=== PATIENT | male | born 1980 | race Caucasian/White ===

== ENCOUNTER 2020-09-11 01:25 | Emergency (ER) | payer SELFPAY ==
[~2020-09-11] VITALS: Ht 180.3 cm; Wt 102.2 kg
--- NOTE | 2020-09-11 02:04 | NUR ---
PT. TO ROOM FROM LOBBY AT THIS TIME.
[2020-09-11] MEDS ORDERED: KETOROLAC 30 MG/1 ML ONE (03:44)
[2020-09-11] MEDS ORDERED: ACETAMINOPHEN 500 MG TABLET ONE (03:44)
[2020-09-11] MEDS ORDERED: ACETAMINOPHEN 500 MG TABLET PO ONE (04:00)
[2020-09-11 04:11] VITALS: BP 124/82
== END 2020-09-11 04:12 | disposition home or self-care (01) ==
LOC: ED 02:52
DX: M77.8 Other enthesopathies, not elsewhere classified (principal); M79.671 Pain in right foot
CPT/HCPCS: 99283

== ENCOUNTER 2020-09-18 00:08 | Emergency (ER) | payer SELFPAY ==
[~2020-09-18] VITALS: Ht 180.3 cm; Wt 102.5 kg
[2020-09-18 00:15] VITALS: BP 163/100
--- NOTE | 2020-09-18 02:44 | NUR ---
PT PRESENTS TO ER FOR RIGHT ANKLE AND FOOT PAIN, PT STATES HE EXPERIENCES PAIN REGARDLESS IF ITS ELEVATED OR IF HE HAS ICE ON OR IF HE TAKES PAIN MEDS, PT STATES "IT FEELS LIKE THERE IS A KNIFE GOING ACROSS IT", PT STATES THIS PAIN HAS BEEN GOING ON FOR THE LAST TWO DAYS
[2020-09-18] MEDS ORDERED: OXYcodone/APAP 10/325MG TABLET ONE (03:49)
[2020-09-18] MEDS ORDERED: OXYcodone/APAP 10/325MG TABLET PO ONE (04:00)
== END 2020-09-18 03:59 | disposition home or self-care (01) ==
LOC: ED 01:00
DX: G89.29 Other chronic pain (principal); M79.671 Pain in right foot; F17.200 Nicotine dependence, unspecified, uncomplicated
CPT/HCPCS: 99283

== ENCOUNTER 2020-11-09 01:34 | Emergency (ER) | payer SELFPAY ==
[~2020-11-09] VITALS: Ht 180.3 cm; Wt 98.0 kg
[2020-11-09 01:37] VITALS: BP 122/80
[2020-11-09 01:56] LABS: BASOPHILS % (AUTO) 1 % (0-1); EOSINOPHILS % (AUTO) 1 % (1-7); LYMPHOCYTES % (AUTO) 26 % (22-44); MEAN CORPUSCULAR HEMOGLOBIN 34.1 pg (27.5-34.5); MEAN CORPUSCULAR HGB CONC 34.9 g/dL (33.2-36.2); MEAN PLATELET VOLUME 9.4 fL (7.4-10.4); MONOCYTES % (AUTO) 8 % (2-9); NEUTROPHILS % (AUTO) 65 % (42-75); PLATELET COUNT 156 x10^3/uL (130-400); RED BLOOD COUNT 5.26 x10^6/uL (4.38-5.82)
[2020-11-09 02:09] LABS: ALANINE AMINOTRANSFERASE 71 U/L (12-78); ANION GAP 4 mmol/L (5-15); CALCIUM 8.4 mg/dL (8.5-10.1); CHLORIDE 106 mmol/L (98-107); CREATININE 1.32 mg/dL (0.7-1.3)
[2020-11-09 02:11] LABS: ALKALINE PHOSPHATASE 77 U/L (45-117); BILIRUBIN,TOTAL 0.4 mg/dL (0.2-1.0); TOTAL PROTEIN 6.6 g/dL (6.4-8.2)
--- NOTE | 2020-11-09 03:20 | NUR ---
PT PRESENTS TO ER FOR RIGHT LEG NUMBNESS GOING ON FOR A WEEK NOW, PT STATES NUMBNESS IS ASSOCIATED WITH PAIN, PT HAS NO HISTORY OF THIS HAPPENING TO HIM BEFORE, PT A/OX3, NAD AT THIS TIME
== END 2020-11-09 04:05 | disposition home or self-care (01) ==
LOC: ED 02:00
DX: G62.9 Polyneuropathy, unspecified (principal); R20.2 Paresthesia of skin; F17.200 Nicotine dependence, unspecified, uncomplicated
CPT/HCPCS: 36415; 80053; 85025; 99283